=== PATIENT | female | born 1965 | race Caucasian/White ===

== ENCOUNTER 2022-03-24 04:19 | Day surgery (SDC) | payer OTHER ==
[2022-03-21 13:31] VITALS: BMI 33.6
[2022-03-24 11:53] VITALS: BP 131/91; PULSE 70; TEMP 98.5
== END 2022-03-24 11:54 | disposition home or self-care (01) ==
LOC: JASU-ENDO 04:19
PROVIDERS: ATTEND Internal Medicine Gastroenterology
PROC: 0DB48ZX Excision of Esophagogastric Junction, Via Natural or Artificial Opening Endoscopic, Diagnostic (ICD-10-PCS; 2022-03-24)
PROC: 0DB78ZX Excision of Stomach, Pylorus, Via Natural or Artificial Opening Endoscopic, Diagnostic (ICD-10-PCS; 2022-03-24)
PROC: 0DJD8ZZ Inspection of Lower Intestinal Tract, Via Natural or Artificial Opening Endoscopic (ICD-10-PCS; 2022-03-24)
PROC: 0DJD8ZZ Inspection of Lower Intestinal Tract, Via Natural or Artificial Opening Endoscopic (ICD-10-PCS; principal; 2022-03-24 10:30)
DX: Z12.11 Encounter for screening for malignant neoplasm of colon (principal); K57.30 Diverticulosis of large intestine without perforation or abscess without bleeding; K29.50 Unspecified chronic gastritis without bleeding; K21.00 Gastro-esophageal reflux disease with esophagitis, without bleeding; K64.8 Other hemorrhoids; I10 Essential (primary) hypertension
CPT/HCPCS: 43239; G0121; 88305-TC; 88342-TC

== ENCOUNTER 2022-05-15 08:53 | Emergency (ER) | payer OTHER ==
[2022-05-15 08:58] VITALS: BMI 33.4
[2022-05-15] MEDS ORDERED: SODIUM CHLORIDE 0.9% 500 ML INFUS.BAG IV ONE (09:19)
[2022-05-15] MEDS ORDERED: ACETAMINOPHEN 1000 MG/100 ML BAG IVPB ONE (09:19)
[2022-05-15] MEDS ORDERED: ONDANSETRON 4 MG/2 ML VIAL IVPUSH ONE (09:20)
[2022-05-15] MEDS ORDERED: ACETAMINOPHEN INJECTION 100 ML IVPB ONE (09:22)
[2022-05-15] MEDS ORDERED: ONDANSETRON 4 MG/2 ML VIAL ONE (09:23)
[2022-05-15 10:24] LABS: ALBUMIN 4.4 g/dl (3.4-5.0); CALCIUM 9.8 mg/dL (8.5-10.1)
[2022-05-15 10:25] LABS: BLOOD UREA NITROGEN 11.9 mg/dL (7-18)
[2022-05-15 10:27] LABS: CREATININE 0.9 mg/dL (0.55-1.3)
[2022-05-15 10:28] LABS: LACTIC ACID 2.3 mmol/L (0.4-2.0)
[2022-05-15 10:29] LABS: BILIRUBIN,TOTAL 1.3 mg/dL (0.2-1); TOT PROT 8.4 g/dl (6.4-8.2)
[2022-05-15 10:30] LABS: EPI CELLS >36 /uL (0-25.1); HYALINE CASTS 7 /uL (0-3.1); PH,URINE 5.5 (5.0-8.0); URINE APPEARANCE CLOUDY; URINE BACTERIA 166 /uL (0-1359); URINE BILIRUBIN NEGATIVE (NEGATIVE); URINE COLOR DK YELLOW; URINE GLUCOSE (UA) NEGATIVE (NEGATIVE); URINE KETONE 1+ (NEGATIVE); URINE LEUK ESTERASE 1+ (NEGATIVE); URINE NITRITE NEGATIVE (NEGATIVE); URINE PROTEIN 1+ (NEGATIVE); URINE WBC 50 /uL (0-25.8)
[2022-05-15 10:33] LABS: BASO % 0.2 % (0-2.0); HEMATOCRIT 46.5 % (32.4-45.2); HEMOGLOBIN 15.9 GM/dL (10.7-15.3); LYMPH % 8.1 % (8-40); MCH 30.8 pg (25.7-33.7); MCHC 34.2 g/dl (32.0-36.0); MEAN CELL VOLUME 90.1 fl (80-96); MEAN PLT VOLUME 8.2 fl (7.5-11.1); MONO % 6.2 % (3.8-10.2); NEUT % 85.5 % (42.8-82.8); PLATELET COUNT 313 10^3/uL (134-434); RBC 5.16 M/mm3 (3.60-5.2); RDW 13.8 % (11.6-15.6)
[2022-05-15 10:49] LABS: URINE RBC 30.9 /uL (0-23.9)
[2022-05-15] MEDS ORDERED: SODIUM CHLORIDE 0.9% 1000 ML INFUS.BAG IV ONE (14:03)
[2022-05-15 17:02] VITALS: BP 122/68; PULSE 76; TEMP 98.9
== END 2022-05-15 17:01 | disposition home or self-care (01) ==
LOC: JER 08:53
PROC: 3E0333Z Introduction of Anti-inflammatory into Peripheral Vein, Percutaneous Approach (ICD-10-PCS; principal; 2022-05-15)
PROC: 3E03329 Introduction of Other Anti-infective into Peripheral Vein, Percutaneous Approach (ICD-10-PCS; 2022-05-15)
PROC: 3E03329 Introduction of Other Anti-infective into Peripheral Vein, Percutaneous Approach (ICD-10-PCS; 2022-05-15)
PROC: 3E03329 Introduction of Other Anti-infective into Peripheral Vein, Percutaneous Approach (ICD-10-PCS; 2022-05-15)
PROC: 3E033GC Introduction of Other Therapeutic Substance into Peripheral Vein, Percutaneous Approach (ICD-10-PCS; 2022-05-15)
DX: K57.92 Diverticulitis of intestine, part unspecified, without perforation or abscess without bleeding (principal)
CPT/HCPCS: 36415; 73502-TC-RT-FY; 74177-TC; 80053; 81003; 83605; 85025; 87086; 96374; 96375; 96376; 99285-25; Q9967

== ENCOUNTER 2022-12-22 17:07 | Emergency (ER) | payer OTHER ==
[2022-12-22 17:47] VITALS: BP 140/76; PULSE 82; RESP 14; TEMP 98.7; BMI 32.3
[2022-12-22 18:38] LABS: EPI CELLS 2 /uL (0-25.1); HYALINE CASTS 1 /uL (0-3.1); URINE APPEARANCE CLEAR; URINE BACTERIA 2026 /uL (0-1359); URINE BILIRUBIN NEGATIVE (NEGATIVE); URINE COLOR YELLOW; URINE GLUCOSE (UA) NEGATIVE (NEGATIVE); URINE KETONE NEGATIVE (NEGATIVE); URINE LEUK ESTERASE 2+ (NEGATIVE); URINE NITRITE NEGATIVE (NEGATIVE); URINE PROTEIN NEGATIVE (NEGATIVE); URINE RBC 8 /uL (0-23.9); URINE UROBILINOGEN 0.2 mg/dL (0.2-1.0); URINE WBC 251 /uL (0-25.8)
[2022-12-22] MEDS ORDERED: CEFTRIAXONE 1 GM in DEXTROSE 5%-WATER - 100 ML IVPB ONE (18:51)
[2022-12-22] MEDS ORDERED: PHENAZOPYRIDINE HCL 100 MG TABLET (FP) PO ONE (19:22)
[2022-12-22] MEDS ORDERED: LACTATED RINGERS SOLUTION 1000 ML INFUS.BAG IV ONE (19:22)
[2022-12-22] MEDS ORDERED: CEFTRIAXONE 1 GM/50 ML BAG ONE (19:31)
[2022-12-22] MEDS ORDERED: PHENAZOPYRIDINE HCL 100 MG TABLET (FP) ONE (19:34)
[2022-12-22 19:56] LABS: HEMATOCRIT 40.5 % (32.4-45.2); HEMOGLOBIN 14.2 GM/dL (10.7-15.3); MCH 31.2 pg (25.7-33.7); MCHC 34.9 g/dl (32.0-36.0); MEAN CELL VOLUME 89.3 fl (80-96); MEAN PLT VOLUME 7.6 fl (7.5-11.1); PLATELET COUNT 321 10^3/uL (134-434); RBC 4.54 M/mm3 (3.60-5.2); RDW 13.5 % (11.6-15.6); WHITE BLOOD COUNT 7.5 K/mm3 (4.0-10.0)
[2022-12-22 20:12] LABS: ALBUMIN 4.2 g/dl (3.4-5.0); BLOOD UREA NITROGEN 12.2 mg/dL (7-18); CALCIUM 10.1 mg/dL (8.5-10.1)
[2022-12-22 20:17] LABS: BILIRUBIN,TOTAL 0.3 mg/dL (0.2-1)
== END 2022-12-22 21:34 | disposition left against medical advice (07) ==
LOC: JER 17:07
PROC: 3E033GC Introduction of Other Therapeutic Substance into Peripheral Vein, Percutaneous Approach (ICD-10-PCS; principal; 2022-12-22)
DX: N12 Tubulo-interstitial nephritis, not specified as acute or chronic (principal)
CPT/HCPCS: 36415; 80053; 81003; 85027; 87040; 87086; 87186; 99284-25

== ENCOUNTER 2022-12-23 10:57 | Emergency (ER) | payer OTHER ==
[2022-12-23 11:13] VITALS: BP 138/91; PULSE 82; RESP 16; TEMP 98.7; BMI 32.3
[2022-12-23] MEDS ORDERED: CEFTRIAXONE 1,000 MG in DEXTROSE 5%-WATER - 50 ML IVPB ONE (12:23)
[2022-12-23] MEDS ORDERED: CEFTRIAXONE 1 GM/50 ML BAG ONE (12:32)
[2022-12-23 12:50] LABS: EPI CELLS 9 /uL (0-25.1); HYALINE CASTS 1 /uL (0-3.1); PH,URINE 5.5 (5.0-8.0); URINE APPEARANCE CLEAR; URINE BILIRUBIN NEGATIVE (NEGATIVE); URINE COLOR DK YELLOW; URINE GLUCOSE (UA) NEGATIVE (NEGATIVE); URINE KETONE NEGATIVE (NEGATIVE); URINE LEUK ESTERASE 1+ (NEGATIVE); URINE NITRITE POSITIVE (NEGATIVE); URINE PROTEIN NEGATIVE (NEGATIVE); URINE RBC 16 /uL (0-23.9); URINE UROBILINOGEN 0.2 mg/dL (0.2-1.0); URINE WBC 293 /uL (0-25.8)
[2022-12-23 15:14] LABS: URINE BACTERIA 3 /uL (0-1359)
== END 2022-12-23 15:25 | disposition home or self-care (01) ==
LOC: JER 10:57
DX: N39.0 Urinary tract infection, site not specified (principal)
CPT/HCPCS: 81003; 87086; 96374; 99284-25

== ENCOUNTER 2023-07-26 17:57 | Emergency (ER) | payer OTHER ==
[2023-07-26 18:42] VITALS: TEMP 98.7; BMI 33.4
[2023-07-26 19:52] VITALS: BP 142/84; PULSE 76; RESP 16
[2023-07-26 20:08] LABS: BASO % 0.7 % (0-2.0); EOS % 0.4 % (0-4.5); HEMOGLOBIN 14.1 GM/dL (10.7-15.3); MCH 31.2 pg (25.7-33.7); MCHC 35.1 g/dl (32.0-36.0); MEAN CELL VOLUME 88.8 fl (80-96); MEAN PLT VOLUME 8.4 fl (7.5-11.1); MONO % 5.7 % (3.8-10.2); NEUT % 69.2 % (42.8-82.8); PLATELET COUNT 262 10^3/uL (134-434); RBC 4.51 M/mm3 (3.60-5.2); RDW 13.1 % (11.6-15.6); WHITE BLOOD COUNT 10.6 K/mm3 (4.0-10.0)
[2023-07-26] MEDS ORDERED: ACETAMINOPHEN 325 MG TABLET (FP) PO ONE (20:09)
[2023-07-26] MEDS ORDERED: LORazepam 2 MG TABLET PO ONE (20:09)
[2023-07-26 20:15] LABS: EPI CELLS 7 /uL (0-25.1); HYALINE CASTS 0 /uL (0-3.1); URINE APPEARANCE CLEAR; URINE BACTERIA 31 /uL (0-1359); URINE BILIRUBIN NEGATIVE (NEGATIVE); URINE COLOR YELLOW; URINE GLUCOSE (UA) NEGATIVE (NEGATIVE); URINE KETONE NEGATIVE (NEGATIVE); URINE LEUK ESTERASE 2+ (NEGATIVE); URINE NITRITE NEGATIVE (NEGATIVE); URINE PROTEIN NEGATIVE (NEGATIVE); URINE RBC 5 /uL (0-23.9); URINE UROBILINOGEN 0.2 mg/dL (0.2-1.0); URINE WBC 41 /uL (0-25.8)
[2023-07-26] MEDS ORDERED: ACETAMINOPHEN 325 MG TABLET (FP) ONE (20:16)
[2023-07-26] MEDS ORDERED: LORazepam 1 MG TABLET ONE (20:16)
[2023-07-26 20:19] LABS: INR 1.04 (0.83-1.09); PROTHROMBIN TIME (PATIENT) 12.1 SEC (9.7-13.0)
[2023-07-26 20:26] LABS: COCAINE, UR NEGATIVE (NEGATIVE); METHADONE, UR NEGATIVE (NEGATIVE)
[2023-07-26 20:27] LABS: OPIATES, URI NEGATIVE (NEGATIVE); PHENCYCLIDINE,URINE NEGATIVE (NEGATIVE); URINE BARBITURATES NEGATIVE (NEGATIVE); URINE BENZODIAZEPINES NEGATIVE (NEGATIVE)
[2023-07-26 20:30] LABS: URINE AMPHETAMINES NEGATIVE (NEGATIVE)
[2023-07-26 20:35] LABS: POTASSIUM 3.7 mmol/L (3.5-5.1)
[2023-07-26 20:38] LABS: BLOOD UREA NITROGEN 10.4 mg/dL (7-18)
[2023-07-26 20:41] LABS: CREATININE 0.8 mg/dL (0.55-1.3)
[2023-07-26 20:42] LABS: TOT PROT 7.3 g/dl (6.4-8.2)
[2023-07-26 20:43] LABS: BILIRUBIN,TOTAL 0.7 mg/dL (0.2-1)
== END 2023-07-26 22:32 | disposition left against medical advice (07) ==
LOC: JER 17:57
DX: R41.82 Altered mental status, unspecified (principal); R42 Dizziness and giddiness; R51.9 Headache, unspecified; R41.3 Other amnesia; R40.4 Transient alteration of awareness; Z20.822 Contact with and (suspected) exposure to COVID-19
CPT/HCPCS: 0241U-QW; 36415; 70450-TC; 70551-TC; 71045-TC-FY; 80053; 80061; 80307; 81003; 82962; 83735; 84439; 84443; 85025; 85610; 85730; 86850; 86900; 86901; 87086; 93005; 93010; 99285-25